=== PATIENT | female | born 1945 | race Caucasian/White ===

== ENCOUNTER → 2020-06-29 | Outpatient (CLI) | payer MEDICARE | LOC: CT 06-13 13:00 | DX: C54.1 Malignant neoplasm of endometrium (principal); I26.99 Other pulmonary embolism without acute cor pulmonale; Z79.899 Other long term (current) drug therapy; Z71.2 Person consulting for explanation of examination or test findings | CPT/HCPCS: 71260; Q9967 ==

== ENCOUNTER → 2020-12-12 | Outpatient (CLI) | payer MEDICARE | LOC: CT 13:12 | DX: C54.1 Malignant neoplasm of endometrium (principal); Z79.899 Other long term (current) drug therapy; Z71.2 Person consulting for explanation of examination or test findings; K44.9 Diaphragmatic hernia without obstruction or gangrene | CPT/HCPCS: 36415; 82565; 84520; Q9967 ==